=== PATIENT | female | born 1960 | race Caucasian/White ===

== ENCOUNTER 2017-09-09 08:42 | Observation (INO) | payer BC ==
[2017-09-09 09:20] LABS: ABS Basophils 0.1 10^3/ul (0-0.2); ABS Eosinophils 0 10^3/ul (0-0.6); ABS Monocytes 0.5 10^3/ul (0-0.8); ABS Neutrophils 6.2 10^3/ul (1.5-7.7); ABS Nucleated RBC 0 10^3/ul; Eosinophil % 0.2 % (0-6); Hematocrit 47 % (35-47); Hemoglobin 15.8 g/dl (12.0-16.0); Lymphocyte % 13.4 % (25-47); Mean Corpuscular HGB Conc 34 g/dl (31-36); Mean Corpuscular Hemoglobin 31 pg (27-31); Mean Corpuscular Volume 90 fL (80-97); Mean Platelet Volume 8.3 um3 (7.4-10.4); Nucleated Red Blood Cells % 0; Platelet Count 229 10^3/ul (150-450); Red Cell Distribution Width 13 % (10.5-15); White Blood Count 7.8 10^3/ul (3.5-10.8)
[2017-09-09 09:37] LABS: EGFR Non-African American 80.6 (>60)
[2017-09-09] MEDS ORDERED: Ondansetron ODT TAB* 4 MG PO ONE (11:01)
--- NOTE | 2017-09-09 11:46 | RAD ---
INDICATION: Right upper quadrant pain. COMPARISON: There are no prior studies available for comparison. TECHNIQUE: Multiple real-time images of the right upper quadrant were obtained. FINDINGS: There are multiple gallstones present. The gallbladder wall is thickened. No pericholecystic fluid is present. The patient was painful while scanning directly over the gallbladder. No intrahepatic ductal distention is seen. There is mild prominence of the common bile duct measuring up to 0.7 cm in diameter. The liver is mildly enlarged and slightly increased in echogenicity which is a nonspecific finding although suggestive of fatty infiltration. The pancreas is partially obscured by overlying bowel gas. The right kidney is normal in size without evidence for hydronephrosis. IMPRESSION: 1. CHOLELITHIASIS, IN ADDITION THERE IS THICKENING OF THE WALL OF THE GALLBLADDER SUGGESTING THE POSSIBILITY OF ACUTE CHOLECYSTITIS. 2. MILD PROMINENCE OF THE COMMON BILE DUCT. 3. FINDINGS SUGGESTIVE OF FATTY INFILTRATION OF THE LIVER.
[2017-09-09] MEDS ORDERED: Morphine VIAL* 4 MG/ML VIAL (1 ml vial) IV ONE (12:58)
[2017-09-09] MEDS ORDERED: NS 0.9% 1000 ML* 1,000 ML IV ONE (13:42)
[2017-09-09] MEDS ORDERED: Piperacillin/Tazobac ADVAN(*) 3.375 GM in NS 0.9% 100 ML* 100 ML IVPB ONE (13:44)
[2017-09-09] MEDS ORDERED: Morphine VIAL* 4 MG/ML VIAL (1 ml vial) IV PRN ×3 (13:44→17:42)
[2017-09-09] MEDS ORDERED: NS 0.9% 1000 ML* 1,000 ML IV SCH (13:45)
--- NOTE | 2017-09-09 14:31 | HP ---
CC: Dr. Kalyani Marie DATE OF ADMISSION: 09/09/2017. CHIEF COMPLAINT: Epigastric and right upper quadrant abdominal pain. HISTORY OF PRESENT ILLNESS: Ms. Mayuri Covarrubias is very pleasant, healthy, 56- year- old woman who woke up last night with severe epigastric and right upper quadrant abdominal pain. It radiated into her back and up into her chest and right shoulder. This persistent with some mild nausea without vomiting. She had no lower abdominal pain or change in bowel habits. She had no fevers, shakes, or chills and had no diarrhea. The pain persisted and worsened and she became quite concerned. She presented to the emergency room and was noted to be afebrile with stable vital signs. Laboratory work-up included a normal white blood cell count, as well as normal liver transaminase, total bilirubin, and lipase. She subsequently underwent an ultrasound of the gallbladder. I did review these images. This shows cholelithiasis with thickening of the gallbladder wall consistent with the possibility of acute cholecystitis. While in the emergency room, she required some narcotic pain medicine, but her pain persisted. In light of the findings on ultrasound, surgical consultation was obtained. PAST MEDICAL HISTORY: Unremarkable. PAST SURGICAL HISTORY: 1. section. 2. Hysterectomy. MEDICATIONS: None. ALLERGIES: WALNUTS, but she has no known drug allergies. SOCIAL HISTORY: She is . She has four grown children. She is presently not employed. She does not use tobacco. Drinks alcohol on a social basis. REVIEW OF SYSTEMS: Cerebrovascular: No dizziness or visual disturbances. Cardiovascular: No chest pain, shortness of breath. Pulmonary: No wheezing or hemoptysis. GI: As per above. She has never had abdominal pain or characteristic symptoms as she has described above. : No urgency or hematuria. PHYSICAL EXAMINATION GENERAL: Well-developed, slightly overweight female with normal attention to grooming. VITAL SIGNS: She is afebrile. Pulse 57, blood pressure 150/85, oxygen saturation 96. HEENT: Sclerae anicteric. Oral mucosa is slightly dry. LUNGS: Clear to auscultation with normal respiratory effort. HEART: Regular rate and rhythm without murmurs, rubs, or gallops. ABDOMEN: Soft, slightly distended. She has a well-healed low transverse incision with hernias. No umbilical hernias. She has tenderness in the epigastric and right upper quadrant with some voluntary guarding. There is no organomegaly. I appreciate no peritoneal irritation. PSYCHIATRIC: She is awake, alert, and oriented times three. She has normal judgment and insight. IMPRESSION: Acute calculus cholecystitis. Upon review of her history, physical exam, as well as the imaging and with concern for the thickening of the gallbladder wall, I suspect that she has acute calculus cholecystitis as her pain has persisted after being here almost six hours in the emergency room and presently going on about 12 hours since the beginning of her discomfort. She has never had discomfort like this and is not noted to have gallstones in the past. PLAN/RECOMMENDATIONS: Laparoscopic cholecystectomy today. In light of her exam showing some significant tenderness in the right upper quadrant, I have recommended that we proceed with a laparoscopic cholecystectomy later today for treatment of her acute calculus cholecystitis. I discussed all of this with her and her who is present her in the emergency room. The procedure, including the risk of, but not limited to, bleeding, infection, intra-abdominal abscess formation, injury to peritoneal and retroperitoneal structures, common bile duct injury requiring further reconstruction, bile leak, the possibility of an open procedure, the risks of anesthesia, blood clots and recovery times were all explained. She will be kept NPO and will start her on IV fluids. She will receive a dose of IV Zosyn preoperatively and will plan for surgery sometime later today with most likely a planned overnight stay with discharge tomorrow, depending on her clinical course. [id number] #: [id number] MTDD
[2017-09-09] MEDS ORDERED: Bupivacaine 0.5% SDV PF* 30ML VIAL ONE (15:08)
[2017-09-09] MEDS ORDERED: Dexamethasone IV* 4 MG/ML 1 ML (4 MG) ONE (15:21)
[2017-09-09] MEDS ORDERED: Atracurium* 10 MG/ML 10 ML VIAL ONE (15:21)
[2017-09-09] MEDS ORDERED: fentaNYL* 50 MCG/ML 2 ML VIAL (100 MCG VIAL) ONE ×3 (15:21→17:14)
[2017-09-09] MEDS ORDERED: Propofol* 10 MG/ML 20 ML BTL IV PUSH ONE (15:21)
[2017-09-09] MEDS ORDERED: Lidocaine 2% PF * 5 ML VIAL ONE (15:22)
[2017-09-09] MEDS ORDERED: Ondansetron INJ* 2 MG/ML VIAL IV PRN (16:20)
[2017-09-09] MEDS ORDERED: Ketorolac INJ* 30 MG/ML 1 ML VIAL IV PRN (16:20)
[2017-09-09] MEDS ORDERED: Acetaminophen TAB* 325 MG PO PRN ×2 (16:20→17:39)
[2017-09-09] MEDS ORDERED: DiMENhydriNATE IV* 50 MG/ML VIAL IV PUSH PRN (16:20)
[2017-09-09] MEDS ORDERED: fentaNYL* 50 MCG/ML 2 ML VIAL (100 MCG VIAL) IV PRN (16:20)
[2017-09-09] MEDS ORDERED: Naloxone* 0.4 MG/ML 1 ML VIAL IV PRN (16:20)
[2017-09-09] MEDS ORDERED: HYDROmorphone INJ* 1 MG/ML CARPUJECT SYRINGE IV PRN (16:20)
[2017-09-09] MEDS ORDERED: EPHEDrine (Pressors)* 50 MG/ML VIAL ONE (17:13)
[2017-09-09] MEDS ORDERED: Ketorolac INJ* 30 MG/ML 1 ML VIAL IV PUSH PRN (17:41)
[2017-09-09] MEDS ORDERED: Ondansetron ODT TAB* 4 MG PO PRN (17:44)
--- NOTE | 2017-09-09 17:47 | OP ---
Operative Report - Blank - Operative Report Date of Operation: 09/09/17 Note: Preop Dx: acute cholecystitis Postop Dx: same Procedure: Lap Cholecystectomy Anesthesia: GET Surgeon: Latesha Asst: ORALIA Xie Fluids: 1200 ml EBL: < 50 ml Drains: none Specimen: gallbladder Findings: dictated
[2017-09-09] MEDS ORDERED: Zosyn per Pharmacy* NOTE FOLLOW UP SCH (18:00)
[2017-09-09] MEDS ORDERED: NS 0.45% 1000 ML BAG* 1,000 ML IV SCH (18:00)
[2017-09-09] MEDS ORDERED: Ketorolac INJ* 30 MG/ML 1 ML VIAL ONE (18:14)
[2017-09-09] MEDS: HYDROcodone/ACETAMIN 5-325 MG* 1 TAB PO PRN (20:08)
[2017-09-09] MEDS: ZOSYN 3.375 GM Q8H per EXTENDED INFUSION IVPB SCH ×2 (21:50)
--- NOTE | 2017-09-09 22:36 | ED ---
Jaret Keene Jade, scribed for Xuan Mukherjee MD on 09/09/17 at 1055 . Abdominal Pain/Female - HPI Summary HPI Summary: Pt is a 56 y/o female who presents to the ED c/o abdominal pain since last night at 23:15. The pain is located in the RUQ and radiates to her back, and is sharp. The pain was initially 8/10 in severity, but now is rated as a 4/10. Pt also complains of nausea. The pain is worse when lying down. She took Motrin at 4:00 this morning, but it did not help with the pain. Pt is accompanied by her Bennett. Last night for dinner, she ate a rice bowl with avocado and chicken, and denies eating any extremely fatty food. Pt denies any tobacco use. She does not take any medications at home. Pt has had no prior episodes of RUQ pain, and has no known hx of gallbladder disease. - History of Current Complaint Chief Complaint: EDAbdPain Stated Complaint: CHEST PAIN Time Seen by Provider: 09/09/17 10:24 Hx Obtained From: Patient, Family/Patient Registration Clerk - , Bennett ?: No Onset/Duration: Sudden Onset, Lasting Days - Last night at 23:15, Still Present - Less pain than last night Timing: Constant Severity Initially: Severe - 8/10 Severity Currently: Moderate Pain Intensity: 4 Pain Scale Used: 0-10 Numeric Location: Discrete At: RUQ Radiates: Yes Radiates to: Back Character: Sharp Aggravating Factor(s): Other: - Lying flat Alleviating Factor(s): Nothing Associated Signs and Symptoms: Positive: Decreased Appetite, Nausea. Negative: Fever Allergies/Adverse Reactions: Allergies Allergy/AdvReac Type Severity Reaction Status Date / Time walnut Allergy Unknown Verified 09/09/17 08:48 Reaction Details Home Medications: Home Medications NK [No Home Medications Reported] 09/09/17 [History Confirmed 09/09/17] PMH/Surg Hx/FS Hx/Imm Hx Previously Healthy: Yes Endocrine/Hematology History: Reports: Hx Anemia Denies: Hx Diabetes Cardiovascular History: Denies: Hx Coronary Artery Disease, Hx Hypertension Respiratory History: Denies: Hx Asthma - Cancer History Hx Chemotherapy: No Hx Radiation Therapy: No - Surgical History Surgery Procedure, Year, and Place: Hysterectomy Infectious Disease History: No Infectious Disease History: Denies: Traveled Outside the [place] in Last 30 Days - Family History Known Family History: Positive: Cardiac Disease - CAD, [place], Other - Gallbladder issues (mother) - Social History Lives: With Family Alcohol Use: Daily Alcohol Amount: 2 drinks/daily Substance Use Type: Reports: None Smoking Status (MU): Never Smoked Tobacco Review of Systems Negative: Fever Cardiovascular: Negative Respiratory: Negative Positive: Abdominal Pain - RUQ radiating to back, Nausea Positive: no symptoms reported Skin: Negative Neurological: Negative Psychological: Normal All Other Systems Reviewed And Are Negative: Yes Physical Exam - Summary Physical Exam Summary: ppearance: Ill-appearing, moderate pain distress, obese Skin: Warm, color reflects adequate perfusion, dry Head: Normal Head/Face inspection, atraumatic Eyes: Conjunctiva clear ENT: Normal inspection Neck: Supple, no nodes, no JVD Respiratory: Lungs clear, normal breath sounds, no respiratory distress Cardio: RRR, No murmur, pulses normal, brisk capillary refill Abdomen: Soft, tenderness RUQ, no masses, no hepatosplenomegaly, no guarding, no rebound, no CVA tenderness Bowel sounds: Present Musculoskeletal: Strength Intact/ROM intact, no calf tenderness, no edema. Psychological: Normal Neuro: Alert, muscle tone normal, no focal deficit Triage Information Reviewed: Yes Vital Signs On Initial Exam: Initial Vitals Temp Pulse Resp BP Pulse Ox 97.7 F 76 14 161/100 96 09/09/17 08:45 09/09/17 08:45 09/09/17 08:45 09/09/17 08:45 09/09/17 08:45 Vital Signs Reviewed: Yes Diagnostics - Vital Signs Vital Signs Temp Pulse Resp BP Pulse Ox 09/09/17 10:16 53 96 09/09/17 08:45 97.7 F 76 14 161/100 96 - Laboratory Lab Results: Lab Results 09/09/17 09/09/17 Range/Units 09:09 09:09 WBC 7.8 (3.5-10.8) 10^3/ul RBC 5.20 (4.00-5.40) 10^6/ul Hgb 15.8 (12.0-16.0) g/dl Hct 47 (35-47) % MCV 90 (80-97) fL MCH 31 (27-31) pg MCHC 34 (31-36) g/dl RDW 13 (10.5-15) % Plt Count 229 (150-450) 10^3/ul MPV 8.3 (7.4-10.4) um3 Neut % (Auto) 79.2 (38-83) % Lymph % (Auto) 13.4 L (25-47) % Sibley % (Auto) 6.3 (0-7) % Eos % (Auto) 0.2 (0-6) % Baso % (Auto) 0.9 (0-2) % Absolute Neuts (auto) 6.2 (1.5-7.7) 10^3/ul Absolute Lymphs (auto) 1.0 (1.0-4.8) 10^3/ul Absolute Monos (auto) 0.5 (0-0.8) 10^3/ul Absolute Eos (auto) 0 (0-0.6) 10^3/ul Absolute Basos (auto) 0.1 (0-0.2) 10^3/ul Absolute Nucleated RBC 0 10^3/ul Nucleated RBC % 0 Sodium 135 (135-145) mmol/L Potassium 4.5 (3.5-5.0) mmol/L Chloride 100 L (101-111) mmol/L Carbon Dioxide 27 (22-32) mmol/L Anion Gap 8 (2-11) mmol/L BUN 11 (6-24) mg/dL Creatinine 0.74 (0.51-0.95) mg/dL Est GFR ( Amer) 103.7 (>60) Est GFR (Non-Af Amer) 80.6 (>60) BUN/Creatinine Ratio 14.9 (8-20) Glucose 125 H (70-100) mg/dL Calcium 10.3 (8.6-10.3) mg/dL Total Bilirubin 0.60 (0.2-1.0) mg/dL AST 18 (13-39) U/L ALT 20 (7-52) U/L Alkaline Phosphatase 84 (34-104) U/L C-Reactive Protein 4.19 (< 5.00) mg/L Total Protein 7.2 (6.4-8.9) g/dL Albumin 4.6 (3.2-5.2) g/dL Globulin 2.6 (2-4) g/dL Albumin/Globulin Ratio 1.8 (1-3) Lipase 23 (11.0-82.0) U/L Result Diagrams: 09/09/17 09:09 09/09/17 09:09 Lab Statement: Any lab studies that have been ordered have been reviewed, and results considered in the medical decision making process. - Ultrasound No standard instances Ultrasound Interpretation: Positive (See Comments) - 10:44 Gallbladder US: 1. CHOLELITHIASIS, IN ADDITION THERE IS THICKENING OF THE WALL OF THE GALLBLADDER SUGGESTING THE POSSIBILITY OF ACUTE CHOLECYSTITIS. 2. MILD PROMINENCE OF THE COMMON BILE DUCT. 3. FINDINGS SUGGESTIVE OF FATTY INFILTRATION OF THE LIVER. ED physician reviewed radiology report. Ultrasound Interpretation Completed By: Radiologist Re-Evaluation - Re-Evaluation First Eval Re-Evaluation Time: 12:51 Change: Unchanged Comment: Spoke to pt about US results and possible surgery with Dr. Charlton. She will be given an IV and morphine for pain. Her last PO intake was last night at 18:00. She denies any CAD. Second Eval Re-Evaluation Time: 13:09 Change: Unchanged Comment: Pt understands Dr. Charlton will come to the ED to evaluate her. Third Eval Re-Evaluation Time: 14:20 Change: Unchanged Comment: Pt understands she will be admitted to the hospital. She is able to ambulate to the bathroom. Abdominal Pain Fem Course/Dx - Course Course Of Treatment: Pt is a 56 y/o female who c/o sharp RUQ pain and nausea. Gallbladder US revealed cholelithiasis, gallbladder wall thickening which suggests cholecystitis, mild prominence of common bile duct, and fatty infiltration of liver. Pt was afebrile, white blood cell count was normal, and LFT's were normal, however with pt's continued pain and exam and US findings, Dr. Charlton was consutled. In the course pt was given Morphine for pain and zofran ODT. Dr. Charlton accepted pt for admission for cholecystectomy today. Dx is acute cholecystitis. Pt medications and allergies reviewed in this visit. - Diagnoses Provider Diagnoses: Acute cholecystitis - Provider Notifications Discussed Care Of Patient With: Will Charlton Time Discussed With Above Provider: 13:06 Instructed by Provider To: MD Will See In ED - Dr. Charlton will come to the ED and evaluation the pt. Discharge - Sign-Out/Discharge Documenting (check all that apply): Discharge/Admit/Transfer - Admit Signing out patient TO: Will Charlton - Discharge Plan Condition: Stable Disposition: ADMITTED TO [facility] - Billing Disposition and Condition Condition: STABLE Disposition: Admitted to [facility] The documentation as recorded by the Jaret chase Jade accurately reflects the service I personally performed and the decisions made by Lonny guerrero Barbara J, MD.
[2017-09-10] MEDS: ZOSYN 3.375 GM Q8H per EXTENDED INFUSION IVPB SCH ×2 (05:41)
[2017-09-10] MEDS: HYDROcodone/ACETAMIN 5-325 MG* 1 TAB PO PRN ×2 (05:48→11:18)
--- NOTE | 2017-09-10 08:34 | PN ---
Progress Note - Progress Note Date of Service: 09/10/17 SOAP: Subjective: Doing well-minimal pain Tolerating water-no N/V Ambulating Objective: Temp Pulse Resp BP Pulse Ox 97.9 F 62 16 105/62 97 09/10/17 05:05 09/10/17 05:05 09/10/17 08:21 09/10/17 05:05 09/10/17 05:05 Intake & Output 09/08/17 09/09/17 09/10/17 09/11/17 06:59 06:59 06:59 06:59 Intake Total 1728 770 Output Total 1500 Balance 228 770 Weight 205 lb Intake: IV Fluids 1528 770 NS (0.45%) 228 lr 1200 IVPB 100 ABX - ZOSYN 100 Oral 100 Output: Urine 1400 Estimated Blood Loss 100 Other: # Bowel Movements 0 PEX: Comfortable Lungs are clear Abd is soft and non-distended. Incisions are clean and dry. Bowel sounds are present Ext without edema Assessment: POD#1 s/p lap choly for acute calculous cholecystitis Plan: D/C home Instructions given Follow up in office next week.
[2017-09-10 08:35] VITALS: BP 112/68
--- NOTE | 2017-09-10 14:54 | OP ---
CC: Dr. Kalyani Marin * DATE OF OPERATION: 09/09/17 - ROOM #331 DATE OF : 56. SURGEON: Will Charlton MD. PHONOGRAPH MECHANIC: ORALIA Ross. ANESTHESIOLOGIST: Dr. Warren. ANESTHESIA: General with local. PRE-OP DIAGNOSIS: Acute calculous cholecystitis. POST-OP DIAGNOSIS: Acute calculous cholecystitis. OPERATIVE PROCEDURE: Laparoscopic cholecystectomy. ESTIMATED BLOOD LOSS: Minimal. IV FLUIDS: 1200 cc of crystalloid. URINE OUTPUT: Not recorded. SPECIMEN: Gallbladder containing gallstones. WOUND CLASSIFICATION: IV with spilled bile in the right upper quadrant. DESCRIPTION OF PROCEDURE: Written informed consent was obtained, the abdomen was marked with indelible ink and preoperative antibiotics were administered. The patient was taken to the operating room, placed in the supine position. Sequential compression devices and a warming blanket were applied. The abdomen was prepped and draped in usual sterile fashion. A time-out verification was completed. Lidocaine 1% was infiltrated just above the umbilicus. A small transverse incision was made and the peritoneal cavity was entered under direct. A 12-mm blunt port was inserted and the abdomen was insufflated to 15 mmHg. Under direct vision, an 11-mm epigastric port was placed and two 5-mm ports were placed in the right side of the abdominal wall. The liver was identified. It appeared to be somewhat fatty without any acute or chronic significant change. Gallbladder was identified. It was markedly distended and edematous. The wall was somewhat grayish-greenish in color consistent with acute cholecystitis. There was some omentum which was adherent to it and using a combination of blunt and sharp dissection, we were able to peel this down off the gallbladder. Once this was done, it was evident that the gallbladder wall was thickened and it was tense with bile that we were unable to grasp this, thus with the first attempt an 18-gauge spinal needle to drain the bile, this was thick and would not aspirate well and inadvertently a small rent was made in the gallbladder at the top and this inadvertently drained some bile thus allowing us to grasp the gallbladder and elevate it up over the liver bed. Once this was done, we were able to take the remainder of the omentum down off the gallbladder, down into the infundibular area. It was obvious that there was significant acute inflammation with edema in the wall; and, with care, was able to take down the thickened peritoneum along the medial and lateral aspects of the gallbladder, and I was able to identify the cystic duct and the artery as they entered the gallbladder. I took a considerable portion of inferior part of the gallbladder off the liver bed using the critical view technique to assure myself that these were the only two structures entering the gallbladder. The cystic duct was of the expected normal caliber as well. Also it was obvious that there were several large gallstones down into the infundibular area of the gallbladder area making it somewhat difficult to grasp. Once these structures had been identified. They were triply clipped and divided. The gallbladder was then removed from the liver bed through the edematous tissue with electrocautery and subsequently placed in an Endo Catch bag. The right upper quadrant was then irrigated with several liters of saline until the clear. The liver bed was examined and hemostasis was assured. The clips remained in place on the duct and artery. Gallbladder was then removed through the umbilical incision and an Endo Catch bag. All ports removed under direct vision of the camera. The umbilical fascia was closed with interrupted 0 Vicryl suture. The skin was approximated with subcuticular 4-0 Vicryl in all four incisions. Steri-Strips were applied. The patient tolerated the procedure well, was taken to the recovery room in stable condition. [id number]/CPS #: [id number] MATHIEU
--- NOTE | 2017-09-17 00:56 | DS ---
DISCHARGE SUMMARY: DATE OF ADMISSION: 09/09/17 DATE OF DISCHARGE: 09/10/17 PRINCIPAL DIAGNOSIS: Acute calculous cholecystitis. SECONDARY DIAGNOSIS: None. PROCEDURE: Laparoscopic cholecystectomy. CONDITION ON DISCHARGE: Good. DISPOSITION: Home. INSTRUCTIONS ON DISCHARGE: The patient was given narcotic prescription that was electronically sent to her pharmacy. This was hydrocodone/acetaminophen 5/ 325 one tablet q.8 hours p.r.n. [facility] I-STOP was checked. She was allowed to advance her diet as tolerated. Active restrictions were given. Followup appointment in the office was made in 1 week. She was instructed to call sooner should she develop fever, incisional redness, severe abdominal pain or have other questions or concerns. BRIEF HISTORY: Mayuri Covarrubias is a 56-year-old woman who presented to the emergency room with 12 hours of epigastric right upper quadrant abdominal pain of rather sudden onset. This was new discomfort for her. In the emergency room , she was noted to have a normal white blood cell count; however, an ultrasound that showed multiple gallstones with thickened gallbladder wall and on physical exam, she had tenderness in the right upper quadrant. HOSPITAL COURSE: The patient was seen in surgical consultation after her pain did not improve with IV analgesia and was felt to have acute cholecystitis. After discussion with the patient and her , she was taken to the operating room for laparoscopic cholecystectomy with the findings of acute calculous cholecystitis. She tolerated the procedure well and due to the lateness of the day, she spent postoperative night #1 in the hospital. On hospital day #1, she was afebrile, her pain was adequately controlled, she was tolerating liquids and she was discharged to home with the above instructions. [id number]/[facility] #: [id number] [facility] SYSTEMBautista
== END 2017-09-10 11:30 | disposition home or self-care (01) ==
LOC: ED 08:42 → OR 17:18 → SSU 17:36
PROVIDERS: ADMIT Surgery; ATTEND Surgery
PROC: 0FT44ZZ Resection of Gallbladder, Percutaneous Endoscopic Approach (ICD-10-PCS; principal; 2017-09-09 17:00)
DX: K80.12 Calculus of gallbladder with acute and chronic cholecystitis without obstruction (principal); R07.9 Chest pain, unspecified; R10.11 Right upper quadrant pain; R11.0 Nausea; R10.13 Epigastric pain; Z90.710 Acquired absence of both cervix and uterus; Z91.018 Allergy to other foods
CPT/HCPCS: 36415; 76705; 80053; 83690; 85025; 86140; 88304; 99283; A9270-GY; G0378; J1100; J1885; J2270; J2543; J2704; J3010